=== PATIENT | female | born 1975 | race Caucasian/White ===

== ENCOUNTER 2016-08-25 08:06 | Emergency (ER) | payer OTHER | END 2016-08-25 11:00 | disposition home or self-care (01) | LOC: ER1 08:06 | DX: J40 Bronchitis, not specified as acute or chronic (principal); H10.9 Unspecified conjunctivitis | CPT/HCPCS: 71020; 94640; 94664; 99283 ==

== ENCOUNTER 2021-02-14 17:18 | Inpatient (IN) | payer OTHER ==
[~2021-02-14] VITALS: Ht 175.3 cm; Wt 113.4 kg
[~2021-02-14 17:18] MED LIST: BACTROBAN NASAL1 G1 TOP; BENADRYL 25MG C25 MG PO; ERYTHROMYCIN O3.5 GM EYERT; FLOXIN 0.3% OTIC5 ML EYELF; KEFLEX500 MG PO; MEDROL DOSEPAK 24 MG PO; OFLOXACIN5 ML OP; PREDNISONE50 MG PO; PROVENTIL HFA6.7 GM INH; TOBRAMYCIN5 ML OS; VENTOLIN HFA 66.7 GM INH; ZITHROMAX250 MG PO
[2021-02-14 18:54] LABS: HEMOGLOBIN 12.5 gm/dl (12.3-15.3); RED BLOOD COUNT 4.43 M/UL (4.00-5.10); WHITE BLOOD COUNT 12.2 K/UL (4.5-11.0)
[2021-02-14 19:18] LABS: BUN/CREATININE RATIO 10 (0-10)
[2021-02-15] MEDS ORDERED: PREDNISONE 5 MG5 MG PO (00:57)
[2021-02-15] MEDS ORDERED: MAVYRET PO (00:58)
[2021-02-15] MEDS ORDERED: PROAIR HFA8.5 GM INH (00:59)
[2021-02-15] MEDS ORDERED: ALBUTEROL2.5 MG/3 M INH (00:59)
[2021-02-15] MEDS ORDERED: BENZONATATE100 MG PO (01:01)
[2021-02-15] MEDS ORDERED: MUCINEX600 MG PO (01:01)
[2021-02-15 07:34] LABS: HEMOGLOBIN 11.9 gm/dl (12.3-15.3); RED BLOOD COUNT 4.34 M/UL (4.00-5.10); WHITE BLOOD COUNT 12.6 K/UL (4.5-11.0)
[2021-02-15 07:59] LABS: BUN/CREATININE RATIO 21 (0-10)
[2021-02-16 03:23] LABS: HEMOGLOBIN 11.8 gm/dl (12.3-15.3); RED BLOOD COUNT 4.26 M/UL (4.00-5.10)
[2021-02-16 03:42] LABS: BUN/CREATININE RATIO 28 (0-10)
[2021-02-16 03:50] LABS: WHITE BLOOD COUNT 27.1 K/UL (4.5-11.0)
[2021-02-17 03:59] LABS: RED BLOOD COUNT 4.31 M/UL (4.00-5.10); WHITE BLOOD COUNT 26.2 K/UL (4.5-11.0)
[2021-02-17 04:18] LABS: BUN/CREATININE RATIO 31 (0-10)
[2021-02-18 04:15] LABS: HEMOGLOBIN 12.4 gm/dl (12.3-15.3); RED BLOOD COUNT 4.42 M/UL (4.00-5.10); WHITE BLOOD COUNT 22.2 K/UL (4.5-11.0)
[2021-02-18 04:27] LABS: BUN/CREATININE RATIO 29 (0-10)
[2021-02-19 07:11] LABS: HEMOGLOBIN 12.5 gm/dl (12.3-15.3); RED BLOOD COUNT 4.45 M/UL (4.00-5.10); WHITE BLOOD COUNT 18.5 K/UL (4.5-11.0)
[2021-02-19 07:35] LABS: BUN/CREATININE RATIO 29 (0-10)
[2021-02-19] MEDS ORDERED: PREDNISONE 5 MG5 MG PO (09:47)
[2021-02-19] MEDS ORDERED: BUDESONIDE0.5 MG/2 M NEB (09:47)
[2021-02-19] MEDS ORDERED: MEDROL DOSEPAK 24 MG PO ×2 (09:47→09:50)
[2021-02-19] MEDS ORDERED: ALBUTEROL2.5 MG/3 M INH (09:47)
[2021-02-19] MEDS ORDERED: AIRDUO DIGIHAL1 EAC2 INH (09:47)
== END 2021-02-19 13:30 | disposition home or self-care (01) | DRG 189 ==
LOC: ER1 17:18 → CDU 22:36 → M/S 22:36
PROVIDERS: Internal Medicine; Physician Assistant Medical; ADMIT Emergency Medicine
DX: J96.01 Acute respiratory failure with hypoxia (principal); J18.9 Pneumonia, unspecified organism; J45.901 Unspecified asthma with (acute) exacerbation; M30.1 Polyarteritis with lung involvement [Churg-Strauss]; J98.11 Atelectasis; Z20.822 Contact with and (suspected) exposure to COVID-19; D72.828 Other elevated white blood cell count; T38.0X5A Adverse effect of glucocorticoids and synthetic analogues, initial encounter; K21.9 Gastro-esophageal reflux disease without esophagitis; B19.20 Unspecified viral hepatitis C without hepatic coma; E66.9 Obesity, unspecified; K44.9 Diaphragmatic hernia without obstruction or gangrene; Z68.36 Body mass index [BMI] 36.0-36.9, adult
CPT/HCPCS: 0240U; 36415; 36600; 71045; 71046; 80048; 80053; 82550; 82553; 82803; 83605; 83735; 83874; 84484; 85025; 85027; 87040; 94640; 94664; 94760; 96365; 96375; 99285; J0456; J0696; J1650; J2405; J2920; J2930; J3475; J7030

== ENCOUNTER 2021-03-26 15:36 | Inpatient (IN) | payer OTHER ==
[~2021-03-26] VITALS: Ht 175.3 cm; Wt 113.4 kg
[~2021-03-26 15:36] MED LIST changes: +AIRDUO DIGIHAL1 EAC2 INH; +ALBUTEROL2.5 MG/3 M INH; +BENZONATATE100 MG PO; +BUDESONIDE0.5 MG/2 M NEB; +MUCINEX600 MG PO; +PREDNISONE 5 MG5 MG PO; +PROAIR HFA8.5 GM INH
[2021-03-26 16:38] LABS: HEMOGLOBIN 11.8 gm/dl (12.3-15.3); RED BLOOD COUNT 4.23 M/UL (4.00-5.10); WHITE BLOOD COUNT 13.5 K/UL (4.5-11.0)
[2021-03-26 17:02] LABS: BUN/CREATININE RATIO 17 (0-10)
[2021-03-26] MEDS ORDERED: PREDNISONE5 MG PO (18:30)
[2021-03-26] MEDS ORDERED: LIQUID B121000 MCG/1 PO (18:31)
[2021-03-27] MEDS ORDERED: MAVYRET PO (00:58)
[2021-03-27 03:51] LABS: HEMOGLOBIN 11.9 gm/dl (12.3-15.3); RED BLOOD COUNT 4.27 M/UL (4.00-5.10)
[2021-03-27 04:27] LABS: BUN/CREATININE RATIO 23 (0-10)
[2021-03-28 04:24] LABS: HEMOGLOBIN 11.1 gm/dl (12.3-15.3); RED BLOOD COUNT 4.03 M/UL (4.00-5.10)
[2021-03-28 04:33] LABS: WHITE BLOOD COUNT 27.2 K/UL (4.5-11.0)
[2021-03-28 04:42] LABS: BUN/CREATININE RATIO 29 (0-10)
[2021-03-29 04:50] LABS: HEMOGLOBIN 11.4 gm/dl (12.3-15.3); RED BLOOD COUNT 3.88 M/UL (4.00-5.10); WHITE BLOOD COUNT 27.8 K/UL (4.5-11.0)
[2021-03-29 05:15] LABS: BUN/CREATININE RATIO 34 (0-10)
[2021-03-29] MEDS ORDERED: PREDNISONE 20 M20 MG PO (14:15)
[2021-03-29] MEDS ORDERED: LEVOFLOXACIN500 MG PO (14:15)
== END 2021-03-29 17:42 | disposition home or self-care (01) | DRG 193 ==
LOC: ER1 15:36 → M/S 17:00 → CDU 17:00 → M/S 20:37
PROVIDERS: Emergency Medicine; ADMIT Internal Medicine
DX: J18.9 Pneumonia, unspecified organism (principal); J96.21 Acute and chronic respiratory failure with hypoxia; M30.1 Polyarteritis with lung involvement [Churg-Strauss]; J45.901 Unspecified asthma with (acute) exacerbation; J98.11 Atelectasis; F17.200 Nicotine dependence, unspecified, uncomplicated; E66.9 Obesity, unspecified; B18.2 Chronic viral hepatitis C; Z20.822 Contact with and (suspected) exposure to COVID-19; Z98.890 Other specified postprocedural states; Z82.49 Family history of ischemic heart disease and other diseases of the circulatory system; Z79.52 Long term (current) use of systemic steroids; Z79.899 Other long term (current) drug therapy; Z68.36 Body mass index [BMI] 36.0-36.9, adult
CPT/HCPCS: 0240U; 36415; 36600; 71045; 71046; 76536; 80053; 81001; 82550; 82553; 82803; 83605; 83874; 83880; 84439; 84443; 84484; 85025; 85027; 85379; 87040; 94640; 94760; 96372; 96374; 96375; 96376; 99285; G0378; J0692; J0696; J1650; J2185; J2930; J3370; J7070

== ENCOUNTER → 2021-04-27 | Outpatient (CLI) | payer OTHER ==
[~2021-04-27] MED LIST changes: +LEVOFLOXACIN500 MG PO; +LIQUID B121000 MCG/1 PO; +MAVYRET PO; +PREDNISONE 20 M20 MG PO; +PREDNISONE5 MG PO
== END ==
LOC: HEART 5 14:12
DX: J96.90 Respiratory failure, unspecified, unspecified whether with hypoxia or hypercapnia (principal)
CPT/HCPCS: 94060; 94729; 95012

== ENCOUNTER → 2021-06-15 | Outpatient (CLI) | payer OTHER | LOC: KOH-I 08:30 | DX: J33.9 Nasal polyp, unspecified (principal); J32.4 Chronic pansinusitis | CPT/HCPCS: 70486 ==

== ENCOUNTER → 2021-07-06 | Outpatient (CLI) | payer OTHER | LOC: HEART 5 15:43 | DX: J45.50 Severe persistent asthma, uncomplicated (principal) | CPT/HCPCS: 94060; 94729; 95012 ==

== ENCOUNTER 2021-07-16 12:02 | Emergency (ER) | payer OTHER ==
[2021-07-16 14:54] LABS: HEMOGLOBIN 9.8 gm/dl (12.3-15.3); RED BLOOD COUNT 4.01 M/UL (4.00-5.10); WHITE BLOOD COUNT 13.6 K/UL (4.5-11.0)
[2021-07-16 15:31] LABS: BUN/CREATININE RATIO 22 (0-10)
[2021-07-16] MEDS ORDERED: CYCLOBENZAPRINE10 MG PO (16:28)
== END 2021-07-16 17:01 | disposition home or self-care (01) ==
LOC: ER1 12:02
PROVIDERS: Nurse Practitioner
DX: M54.9 Dorsalgia, unspecified (principal); Z20.822 Contact with and (suspected) exposure to COVID-19
CPT/HCPCS: 0240U; 71101; 80053; 82550; 82553; 84484; 85025; 86140; 96372; 99284; J2360; Q9967

== ENCOUNTER → 2021-07-26 | Outpatient (CLI) | payer OTHER ==
[~2021-07-26] MED LIST changes: +CYCLOBENZAPRINE10 MG PO
== END ==
LOC: SLEEP 14:47
DX: G47.33 Obstructive sleep apnea (adult) (pediatric) (principal)
CPT/HCPCS: 95810